=== PATIENT | female | born 1970 | race Caucasian/White ===

== ENCOUNTER 2017-12-06 12:20 | Emergency (ER) | END 2017-12-06 15:58 | disposition home or self-care (01) ==

== ENCOUNTER 2019-06-06 18:15 | Emergency (ER) | payer MEDICAID ==
[~2019-06-06] VITALS: Ht 154.9 cm; Wt 55.1 kg
[~2019-06-06 18:15] MED LIST: ACET1TAB40 PO; AMOX1TAB10 PO; AUG875 PO; HYDR-3980 PO; HYDR-4011 PO; IBUP-1542 PO; NAPR-985 PO; ONDA4TAB8 PO; PENI500T PO
[2019-06-06 18:18] VITALS: Ht 154.9 cm; Wt 55.1 kg
[2019-06-06] MEDS ORDERED: KETOROLAC 15 MG INJ IV STA (18:33)
--- NOTE | 2019-06-06 18:35 | ERD ---
ER Documentation Chief Complaint Chief Complaint R FLANK PAIN X'S 2 WEEKS HPI 48-year-old female with no significant prior medical history presents to the ED complaining of a 2-week history of intermittent, sharp and crampy, moderate, right upper quadrant pain which radiates to the back. Denies nausea, vomiting, diarrhea constipation. No hematemesis or hematochezia. No dysuria, polyuria, hematuria or flank pain. No vaginal discharge or bleeding. No relieving or exacerbating factors. No skin rash. No fevers or chills. ROS All systems reviewed and are negative except as per history of present illness. Medications Home Meds Active Scripts Acetaminophen* (Tylenol*) 325 Mg Tablet, 2 TAB PO Q6 PRN for PAIN AND OR ELEVATED TEMP, #20 TAB Prov:GEORGIE GONZALEZ MD 06/06/19 Ondansetron Hcl* (Zofran*) 4 Mg Tablet, 4 MG PO Q6H for NAUSEA AND/OR VOMITING, #30 TAB Prov:JIM POE PA-C 12/06/17 Amoxicillin/Potassium Clav (Amox-Clav 875-125 mg Tablet) 875-125 mg Tab, 1 TAB PO BID for 10 Days, #20 TAB Prov:JIM POE PA-C 12/06/17 Naproxen* (Naprosyn*) 500 Mg Tablet, 500 MG PO BID PRN for PAIN AND/OR INFLAMMATION, #30 TAB Prov:JIM POEC 12/06/17 Hydrocodone/Acetaminophen ([place] 5-325 Tablet) 1 Each Tablet, 1 TAB PO Q6H PRN for PAIN, #12 TAB Prov:JIM POE PA-C 12/06/17 Penicillin V Potassium* (Penicillin V K*) 500 Mg Tab, 500 MG PO QID for 10 Days, TAB Prov:DARYA DAVIDSON MD 09/22/16 Hydrocodone/Acetaminophen ([place] 10-325 Tablet) 1 Each Tablet, 1 TAB PO Q6H PRN for PAIN, #7 TAB Prov:DARYA DAVIDSON MD 09/22/16 Acetaminophen-Codeine* (Acetaminophen-Cod #3*) 300-30 Mg Tab, 1 TAB PO Q4H PRN for PAIN LEVEL 6-10, #15 TAB Prov:CECY BECKWITH 06/01/15 Ibuprofen* (Motrin*) 600 Mg Tab, 600 MG PO Q6H PRN for PAIN LEVEL 1-5, #15 TAB Prov:CECY BECKWITH 06/01/15 Amoxicillin-Clavulanate K* (Augmentin*) 875 Mg Tab, 875 MG PO BID for 7 Days, T AB Prov:CECY BECKWITH 06/01/15 Allergies Allergies: Coded Allergies: No Known Allergy (Unverified , 12/06/17) PMhx/Soc History of Surgery: Yes (CSECTIONS 2004) Anesthesia Reaction: No Hx Neurological Disorder: No Hx Respiratory Disorders: No Hx Cardiac Disorders: No Hx Psychiatric Problems: No Hx Miscellaneous Medical Probl: No Hx Alcohol Use: No Hx Substance Use: No Hx Tobacco Use: No FmHx No stroke or cancer Physical Exam Vitals Vital Signs Date Temp Pulse Resp B/P (MAP) Pulse Ox O2 O2 Flow FiO2 Time Delivery Rate 06/06/19 88 19 110/67 100 Room Air 21:27 (81) 06/06/19 93 21 105/58 99 Room Air 21:00 (74) 06/06/19 77 20 122/73 100 Room Air 20:30 (89) 06/06/19 96 27 132/82 100 Room Air 20:00 (99) 06/06/19 86 22 128/75 99 Room Air 19:30 (92) 06/06/19 99.5 96 20 135/75 100 18:18 (95) Physical Exam Const: Moderate distress due to pain, anxious Head: Atraumatic Eyes: Anicteric. Normal Conjunctiva ENT: Normal External Ears, Nose and Mouth. Neck: Full range of motion. No lymphadenopathy or masses. Nontender. Resp: Clear to auscultation bilaterally Cardio: Regular rate and rhythm, no murmurs Abd: Soft, mild, right upper quadrant tenderness but no rebound or guarding. No right lower or left lower quadrant tenderness. Normal bowel sounds. No masses. Skin: No petechiae or rashes Back: No midline or CVA tenderness Ext: No cyanosis, or edema Neur: Awake and alert. No focal deficit. Psych: Anxious but not depressed. Result Diagram: 06/06/19 1840 06/06/19 184 Results 24 hrs Laboratory Tests Test 06/06/19 18:40 7/14/19 19:26 7/14/19 19:39 White Blood Count 8.0 10^3/ul Red Blood Count 4.57 10^6/ul Hemoglobin 10.7 g/dl Hematocrit 36.2 % Mean Corpuscular Volume 79.2 fl Mean Corpuscular Hemoglobin 23.4 pg Mean Corpuscular 29.6 g/dl Hemoglobin Concent Red Cell Distribution Width % Platelet Count 260 10^3/UL Mean Platelet Volume 10.8 fl Immature Granulocytes % 0.300 % Neutrophils % % Segmented Neutrophils % (Manual) 74 % Lymphocytes % % Lymphocytes % (Manual) 17 % Monocytes % % Monocytes % (Manual) 6 % Eosinophils % % Eosinophils % (Manual) 1 % Basophils % % Basophils % (Manual) 2 % Nucleated Red Blood Cells % 0.0 /100WBC Immature Granulocytes # 0.020 10^3/ul Neutrophils # 10^3/ul Lymphocytes (Manual) 1.3 10^3/ul Lymphocytes # 10^3/ul Monocytes # 10^3/ul Monocytes # (Manual) 0.4 10^3/ul Eosinophils # 10^3/ul Basophils # 10^3/ul Basophils # (Manual) 0.1 10^3/ul Nucleated Red Blood Cells # 10^3/ul Platelet Estimate NORMAL Giant Platelets 1 % Polychromasia 1+ Hypochromasia 1+ Poikilocytosis 1+ Anisocytosis 2+ Microcytosis 2+ Ovalocytes 1+ Sodium Level 140 mmol/L Potassium Level 4.1 mmol/L Chloride Level 105 mmol/L Carbon Dioxide Level 24 mmol/L Anion Gap 11 Blood Urea Nitrogen 6 mg/dl Creatinine 0.76 mg/dl Est Glomerular Filtrat > 60 mL/min Rate mL/min Glucose Level 109 mg/dl Calcium Level 9.0 mg/dl Total Bilirubin 0.4 mg/dl Direct Bilirubin 0.00 mg/dl Indirect Bilirubin 0.4 mg/dl Aspartate Amino 17 IU/L Transf (AST/SGOT) Alanine 18 IU/L Aminotransferase (ALT/SGPT) Alkaline Phosphatase 60 IU/L Total Protein 8.0 g/dl Albumin 4.1 g/dl Globulin 3.90 g/dl Albumin/Globulin Ratio 1.05 Lipase 87 U/L Urine Color STRAW Urine Clarity CLEAR Urine pH 7.0 Urine Specific [place] 1.004 Urine Ketones NEGATIVE mg/dL Urine Nitrite NEGATIVE mg/dL Urine Bilirubin NEGATIVE mg/dL Urine Urobilinogen NEGATIVE mg/dL Urine Leukocyte Esterase NEGATIVE Samantha/ul Urine Microscopic RBC 0 /HPF Urine Microscopic WBC 2 /HPF Urine Hemoglobin 1+ mg/dL Urine Glucose NEGATIVE mg/dL Urine Total Protein NEGATIVE mg/dl POC Beta HCG, Qualitative NEGATIVE Current Medications Medications Dose Sig/Vishnu Start Time Status Last (Trade) Ordered Route PRN Stop Time Admin Dose Reason Admin Ketorolac 15 mg ONCE STAT 06/06/19 DC 06/06/19 Tromethamine IV 18:33 19:53 (Toradol) 06/06/19 18:35 Procedures/MDM DOCUMENTS REVIEWED: ED nurse, prior ED IMAGING: PROCEDURE: Abdominal ultrasound, limited. CLINICAL INDICATION: Abdominal pain. TECHNIQUE: Multiple real-time images were acquired of the patient's right upper abdomen utilizing a high resolution transducer. COMPARISON: None FINDINGS: The liver demonstrates normal echogenicity and size measuring 16.8 cm. There is no focal mass or intrahepatic biliary ductal dilatation. The portal vein is patent. The gallbladder is distended. No gallstones are identified. There is no pericholecystic fluid or gallbladder wall thickening. The common bile duct measures 3.2 mm in maximal dimension. The visualized portions of the pancreas are unremarkable. No free fluid is identified. The right kidney is normal size and echogenicity measuring 10.6 cm. There is no focal renal mass or echogenic calculus identified. There is no obstructive uropathy. IMPRESSION: Unremarkable right upper abdominal ultrasound. .Norm Krishnamurthy MD, MD Date Time Electronically viewed and signed by .Norm Krishnamurthy MD, MD on 06/06/2019 20:38 .T/ REEXAMINATION/REEVALUATION: Time: 20:35. Doing well. Abdomen soft nontender. Pain resolved. 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 CBC reveals mild anemia but no leukocytosis or thrombocytopenia. Chemistry to evaluate for electrolyte abnormalities, renal insufficiency and hyperglycemia is unremarkable. LFTs are negative for hyperbilirubinemia or transaminitis. Lipase is not elevated or consistent with pancreatitis. Urinalysis is negative for pyuria and hematuria. Right upper quadrant ultrasound to evaluate for cholelithiasis/cholecystitis and hydronephrosis is unremarkable. No skin rash or herpes zoster. Patient presents with 2-week history of right upper quadrant pain of uncertain etiology. Abdominal exam is completely benign without significant tenderness, rebound, guarding, signs of peritonitis and CT of the abdomen and pelvis is deferred. Ovarian pathology was also considered and further outpatient evaluation will be necessary. Hypochromic, microcytic anemia without signs of acute bleeding. Patient presents with right upper quadrant pain of uncertain etiology but the absence of signs of acute, serious disease she is stable for discharge with appropriate analgesics and outpatient follow-up as counseled. Counseled patient and family regarding diagnostic workup, diagnosis and need for followup. Understands that the etiology of her symptoms are not established and urgent, outpatient evaluation or return to ED within the next 24 hours for recheck is mandatory or sooner if symptoms recur worsen or any other concerns. Departure Diagnosis: Primary Impression: Acute abdominal pain in right upper quadrant Additional Impression: Anemia Anemia type: unspecified type Qualified Codes: D64.9 - Anemia, unspecified Condition: Stable GEORGIE GONZALEZ MD Jun 06, 2019 18:35
[2019-06-06] MEDS ORDERED: ACET325T33 PO (20:52)
[2019-06-06 21:27] VITALS: BP 110/67; PULSE 88; RESP 19
== END 2019-06-06 21:28 | disposition home or self-care (01) ==
LOC: E/R 18:15
DX: R10.11 Right upper quadrant pain (principal); D64.9 Anemia, unspecified; R40.2142 Coma scale, eyes open, spontaneous, at arrival to emergency department; R40.2362 Coma scale, best motor response, obeys commands, at arrival to emergency department; R40.2252 Coma scale, best verbal response, oriented, at arrival to emergency department
CPT/HCPCS: 36415; 76705; 80053; 81001; 81025; 83690; 85025; 96374; J1885; Z7502

== ENCOUNTER 2019-06-29 18:49 | Emergency (ER) | payer MEDICAID ==
[~2019-06-29] VITALS: Ht 160 cm; Wt 56.5 kg
[~2019-06-29 18:49] MED LIST changes: +ACET325T33 PO; +FER325 PO
[2019-06-29 19:04] VITALS: BP 153/96; PULSE 82; RESP 20; Ht 160 cm; Wt 56.5 kg
--- NOTE | 2019-06-29 19:19 | ERD ---
ER Documentation Chief Complaint Chief Complaint SENT BY PCP FOR HGB OF 7.4, HX ANEMIA, TAKING IRON AT HOME, ASYMPTOMATIC HPI 40-year-old female presents referred by primary doctor for hemoglobin of 7.4. She has a history of anemia and heavy menstrual period. Patient denies any chest pain, shortness of breath, fatigue, dizziness, additional symptoms. Patient states that she has a history of chronic anemia likely due to vaginal bleeding. She has a prescription of iron which she has picking up today at the pharmacy. ROS All systems reviewed and are negative except as per history of present illness. Medications Home Meds Active Scripts Ferrous Sulfate* (Ferrous Sulfate*) 325 Mg Tabec, 325 MG PO TID, #100 TAB Prov:IGLESIA THRASHER MD 06/29/19 Acetaminophen* (Tylenol*) 325 Mg Tablet, 2 TAB PO Q6 PRN for PAIN AND OR ELEVATED TEMP, #20 TAB Prov:GEORGIE GONZALEZ MD 06/06/19 Ondansetron Hcl* (Zofran*) 4 Mg Tablet, 4 MG PO Q6H for NAUSEA AND/OR VOMITING, #30 TAB Prov:JIM POE PA-C 12/06/17 Amoxicillin/Potassium Clav (Amox-Clav 875-125 mg Tablet) 875-125 mg Tab, 1 TAB PO BID for 10 Days, #20 TAB Prov:JIM POE PA-C 12/06/17 Naproxen* (Naprosyn*) 500 Mg Tablet, 500 MG PO BID PRN for PAIN AND/OR INFLAMMATION, #30 TAB Prov:JIM POE PA-C 12/06/17 Hydrocodone/Acetaminophen ([place] 5-325 Tablet) 1 Each Tablet, 1 TAB PO Q6H PRN for PAIN, #12 TAB Prov:JIM POE PA-C 12/06/17 Penicillin V Potassium* (Penicillin V K*) 500 Mg Tab, 500 MG PO QID for 10 Days, TAB Prov:DARYA DAVIDSON MD 09/22/16 Hydrocodone/Acetaminophen ([place] 10-325 Tablet) 1 Each Tablet, 1 TAB PO Q6H PRN for PAIN, #7 TAB Prov:DARYA DAVIDSON MD 09/22/16 Acetaminophen-Codeine* (Acetaminophen-Cod #3*) 300-30 Mg Tab, 1 TAB PO Q4H PRN for PAIN LEVEL 6-10, #15 TAB Prov:CHO,CECY 06/01/15 Ibuprofen* (Motrin*) 600 Mg Tab, 600 MG PO Q6H PRN for PAIN LEVEL 1-5, #15 TAB Prov:CHO,CECY 15 Amoxicillin-Clavulanate K* (Augmentin*) 875 Mg Tab, 875 MG PO BID for 7 Days, TAB Prov:CHOCECY 06/01/15 Allergies Allergies: Coded Allergies: No Known Allergy (Unverified , 12/06/17) PMhx/Soc History of Surgery: Yes (CSECTIONS 2004) Anesthesia Reaction: No Hx Neurological Disorder: No Hx Respiratory Disorders: No Hx Cardiac Disorders: No Hx Psychiatric Problems: No Hx Miscellaneous Medical Probl: Yes (anemia) Hx Alcohol Use: No Hx Substance Use: No Hx Tobacco Use: No FmHx Family History: No diabetes, No coronary disease, No other Physical Exam Vitals Vital Signs Date Temp Pulse Resp B/P (MAP) Pulse Ox O2 O2 Flow FiO2 Time Delivery Rate 06/29/19 97.0 82 20 153/96 99 19:04 (115) Physical Exam Const: No acute distress Head: Atraumatic Eyes: Normal Conjunctiva ENT: Normal External Ears, Nose and Mouth. Neck: Full range of motion. No meningismus. Resp: Clear to auscultation bilaterally Cardio: Regular rate and rhythm, no murmurs Abd: Soft, non tender, non distended. Normal bowel sounds Skin: No petechiae or rashes Back: No midline or flank tenderness Ext: No cyanosis, or edema Neur: Awake and alert Psych: Normal Mood and Affect Procedures/MDM Patient presents with a history of anemia. Her hemoglobin by report is 7.4. Patient refuses transfusion if needed. Patient has notes of tachycardia, is amatory, asymptomatic. Patient does not have signs or symptoms of symptomatic anemia. She will be discharged home with instructions to take iron 3 times a day and repeat in 1 month. She should otherwise return for shortness of breath, chest pain, dizziness, new worsening symptoms. Patient also has incidental elevated blood pressure. The patient's blood pressure was elevated (>120/80) but appears stable without evidence of hypertension emergency or urgency. The patient was counseled about the risks of hypertension and urged to pursue outpatient monitoring and therapy within a week with their primary care physician. I discussed the findings with the patient. I advised the patient to follow-up with the primary physician in about 1-2 days, sooner if needed and return if any concern. Departure Diagnosis: Primary Impression: Elevated blood pressure reading Additional Impression: Anemia Anemia type: unspecified type Qualified Codes: D64.9 - Anemia, unspecified Condition: Stable Patient Instructions: Anemia, Hypertension, To Be Confirmed Additional Instructions: ganesh best 3 stephaniees al john. rosa macdonald 1 mes. IGLESIA THRASHER MD Jun 29, 2019 19:19
== END 2019-06-29 19:19 | disposition home or self-care (01) ==
LOC: E/R 18:49
DX: D64.9 Anemia, unspecified (principal); R03.0 Elevated blood-pressure reading, without diagnosis of hypertension
CPT/HCPCS: 99282